=== PATIENT | female | born 1980 | race Caucasian/White ===

== ENCOUNTER 2023-04-17 18:30 | Emergency (ER) | payer OTHER ==
[2023-04-17 18:46] VITALS: BMI 32.6
[2023-04-17] MEDS ORDERED: KETOROLAC TROMETHAMINE 30 MG/1 ML VIAL IM ONE (20:29)
[2023-04-17] MEDS ORDERED: DEXAMETHASONE SOD PHOSPHATE 10 MG/1 ML VIAL PO ONE (20:31)
[2023-04-17] MEDS ORDERED: KETOROLAC TROMETHAMINE 30 MG/1 ML VIAL ONE (20:38)
[2023-04-17] MEDS ORDERED: DEXAMETHASONE SOD PHOSPHATE 10 MG/1 ML VIAL ONE (20:38)
[2023-04-17] MEDS ORDERED: AMOXICILLIN 500 MG CAPSULE (FP) PO ONE (21:40)
[2023-04-17] MEDS ORDERED: AMOXICILLIN 250 MG CAPSULE ONE (21:46)
[2023-04-17 22:22] VITALS: BP 95/62; PULSE 97; RESP 16; TEMP 99.7
== END 2023-04-17 23:15 | disposition home or self-care (01) ==
LOC: JERFT 18:30
PROC: 3E0233Z Introduction of Anti-inflammatory into Muscle, Percutaneous Approach (ICD-10-PCS; principal; 2023-04-17)
DX: J02.0 Streptococcal pharyngitis (principal); R51.9 Headache, unspecified; M79.10 Myalgia, unspecified site; R68.83 Chills (without fever); Z20.822 Contact with and (suspected) exposure to COVID-19
CPT/HCPCS: 87651; 99284-25; J1100